=== PATIENT | female | born 1990 | race American Indian/Alaskan Native ===

== ENCOUNTER 2021-12-03 09:50 | Emergency (ER) | payer MEDICAID ==
[2021-12-03 09:59] VITALS: BP 108/76
== END 2021-12-04 02:29 | disposition left against medical advice (07) ==
LOC: ED 09:50
DX: F41.9 Anxiety disorder, unspecified (principal); Z53.21 Procedure and treatment not carried out due to patient leaving prior to being seen by health care provider